=== PATIENT | male | born 1935 | race African-American/Black ===

== ENCOUNTER 2017-04-04 08:15 | Day surgery (SDC) | payer OTHER ==
[~2017-04-04] VITALS: Ht 172.7 cm; Wt 77.1 kg
[2017-04-04] MEDS ORDERED: CEFAZOLIN 1 GM IVPB PREMIX 50 ML IV ONE (08:23)
[2017-04-04] MEDS ORDERED: CEFAZOLIN SOD 1 GM/ ISO 50 ML PREMIX IV ONE (08:30)
[2017-04-04] MEDS ORDERED: LIP40 PO (09:49)
[2017-04-04] MEDS ORDERED: TAMS-11 PO (09:49)
[2017-04-04] MEDS ORDERED: LOSA50TA3 PO (09:49)
[2017-04-04] MEDS ORDERED: AMLO10TA88 PO (09:49)
[2017-04-04] MEDS ORDERED: ASPI1CPM6 PO (09:49)
[2017-04-04] MEDS ORDERED: HYDR25TA4 PO (09:49)
[2017-04-04] MEDS ORDERED: LR 1,000 ML IV.SOLN IV ONE (10:20)
[2017-04-04] MEDS ORDERED: MIDAZOLAM HCL 5 MG/5 ML VIAL IVP ONE (10:20)
[2017-04-04] MEDS ORDERED: BUPIVACAINE /EPINEPHRINE/PF 0.25% 30 ML VIAL INJ ONE (10:20)
[2017-04-04] MEDS ORDERED: GLUCAGON,HUMAN RECOMBINANT 1 MG VIAL IV ONE (10:20)
[2017-04-04] MEDS ORDERED: ONDANSETRON HCL 4 MG/2 ML VIAL IVP ONE (10:20)
[2017-04-04] MEDS ORDERED: POLYMYXIN 500,000/BACIT.10,000 UNITS in NS IRR 1 L IR ONE (10:26)
[2017-04-04] MEDS ORDERED: LR 1,000 ML IV SCH (11:06)
[2017-04-04] MEDS ORDERED: MEPERIDINE HCL/PF 25 MG/ML DISP.SYRIN IVP PRN (11:15)
[2017-04-04] MEDS ORDERED: METOCLOPRAMIDE HCL 10 MG/2 ML VIAL IVP PRN (11:15)
[2017-04-04] MEDS ORDERED: MEPERIDINE HCL/PF 50 MG/ML AMP IVP PRN ×2 (11:15)
[2017-04-04] MEDS ORDERED: D5/0.45 NS 1,000 ML IV SCH (11:22)
[2017-04-04] MEDS ORDERED: HYDROmorphone 1 MG INJ. 1 MG/ML AMPUL IVP PRN (11:30)
[2017-04-04] MEDS ORDERED: HYDROcodone/ACETAMIN 5-325 MG TAB (NORCO/ VICODIN) PO PRN ×2 (11:30)
[2017-04-04 12:20] VITALS: BP_SYST 122
== END 2017-04-04 16:46 | disposition home or self-care (01) ==
LOC: SMU 08:15 → SDS 08:15 → UNDOADMIN 08:15 → EDSTATUS 12:45 → SDS 16:46
PROVIDERS: ATTEND Colon & Rectal Surgery
DX: K40.30 Unilateral inguinal hernia, with obstruction, without gangrene, not specified as recurrent (principal); I10 Essential (primary) hypertension; E78.5 Hyperlipidemia, unspecified; Z87.891 Personal history of nicotine dependence; G45.9 Transient cerebral ischemic attack, unspecified; Z79.899 Other long term (current) drug therapy
CPT/HCPCS: 49507; 87081; C1781; J0690; J1610; J2250; J2405; J3490; J7120